=== PATIENT | female | born 1985 | race Caucasian/White ===

== ENCOUNTER 2021-09-04 08:51 | Outpatient (CLI) | payer SELFPAY | END 2021-09-04 08:52 | disposition home or self-care (01) | LOC: CSHCT 08:51 | PROVIDERS: ATTEND Family Medicine | DX: R91.1 Solitary pulmonary nodule (principal); I89.8 Other specified noninfective disorders of lymphatic vessels and lymph nodes; N20.0 Calculus of kidney | CPT/HCPCS: 71250 ==